=== PATIENT | female | born 1970 | race Caucasian/White ===

== ENCOUNTER 2020-04-07 07:04 | Outpatient (CLI) | payer OTHER, SELFPAY | END 2020-04-07 07:05 | disposition home or self-care (01) | PROVIDERS: PCP Internal Medicine; Visit Provider Internal Medicine Gastroenterology | DX: Z01.818 Encounter for other preprocedural examination (principal); Z11.59 Encounter for screening for other viral diseases | CPT/HCPCS: 87635; C9803; U0003 ==

== ENCOUNTER 2020-04-09 00:18 | Day surgery (SDC) | payer OTHER, SELFPAY ==
[2020-03-28 12:36] VITALS: BMI 22.8
[2020-04-09 08:20] VITALS: BP 133/70; PULSE 44; RESP 16; TEMP 37.1; O2SAT 100; BMI 22.8
--- NOTE | 2020-04-09 08:34 | WPDANESEPPF ---
Anes - Initial Pre Proc Eval Procedure: Operation Date: 04/09/20 09:00 Proposed Procedures p Screening Colonoscopy - Tristan Hector MD Date/Time: 04/09/20 08:34 Surgeon: Tristan Hector MD Pre Op Diagnosis: Neoplasm Screening Patient Data Age: 50 Gender: F Height: 5 ft 8 in Weight: 68.2 kg Last Vital Signs Temp 98.8 F 04/09/20 08:20 Pulse 44 L 04/09/20 08:20 Resp 16 04/09/20 08:20 BP 133/70 04/09/20 08:20 Pulse Ox 100 04/09/20 08:20 Allergies Allergy/AdvReac Type Severity Reaction Status Date / Time No Known Allergies Allergy Mild Verified 04/09/20 08:19 Home Medications Medication Instructions Recorded Confirmed Type No Home Medications 03/28/2008 History Patient hx anesthesia problems: none Family hx anesthesia problems: none PMFSH Past Medical History Medical History (Updated 04/09/20 @ 08:34 by Salvador Merrill MD) Healthy adult Anes - Eval Final PreProcedure Day of Procedure 04/09/20 08:34 Patient weight: normal Heart: regular rate and rhythm Lungs: clear to auscultation Airway: Mallampati scale class II Neurological: alert and oriented Last oral intake: >/= 8 hours ASA classification: I Emergent: no Anesthetic plan: proceed Anesthesia type and monitoring: general GIVS and standard monitoring Informed Consent: The patient's anesthetic plan and its attendant risks and benefits were discussed with the patient/family/POA. Questions were solicited and answers provided to the satisfaction of the patient/family/POA.
--- NOTE | 2020-04-09 08:57 | PM.HPGS ---
History of Present Illness History of Present Illness Consent: Risks, benefits, and alternatives have been discussed and questions answered. Patient agrees to proceed with procedure. Chief complaint: Neoplasm Screening Narrative: Bronwyn Luna is a 50 year old female Referred for screening colonoscopy. [facility] Past Medical History Medical History Healthy adult Meds Home Medications and Allergies Home Medications Medication Instructions Recorded Confirmed Type No Home Medications 03/28/20 03/28/20 History Allergies Allergy/AdvReac Type Severity Reaction Status Date / Time No Known Allergies Allergy Mild Verified 04/09/20 08:19 Vital Signs Vital Signs - 24 hr 04/09/20 08:20 Temperature 37.1 C Pulse Rate 44 L Respiratory Rate 16 Blood Pressure 133/70 Pulse Oximetry 100 Exam Resp: Auscultation: clear to auscultation bilaterally Cardio: Rate: regular rate Rhythm: regular rhythm GI: GI Palp: Yes Soft to palpation and No Tenderness to palpation present (GI) Assessment and Plan Assessment and plan (1) Colon cancer screening: Code(s): Z12.11 - Encounter for screening for malignant neoplasm of colon Status: Acute Assessment and Plan: Colonoscopy with possible biopsy or polypectomy or cautery or injection of substances.
[2020-04-09 08:58] VITALS: BP 138/77; PULSE 62; RESP 14; O2SAT 100
[2020-04-09] MEDS: LACTATED RINGERS 1,000 ML 150 ML IV CONT (09:06)
[2020-04-09 09:08] VITALS: BP 122/80; PULSE 47; RESP 15; O2SAT 100
[2020-04-09 09:23] VITALS: BP 122/76; PULSE 45; RESP 15; O2SAT 100
== END 2020-04-09 09:29 | disposition home or self-care (01) ==
PROVIDERS: PCP Internal Medicine; Visit Provider Internal Medicine Gastroenterology
PROC: 0DJD8ZZ Inspection of Lower Intestinal Tract, Via Natural or Artificial Opening Endoscopic (ICD-10-PCS; CPT 45378; principal; 2020-04-09 09:00)
DX: Z12.11 Encounter for screening for malignant neoplasm of colon (principal)
CPT/HCPCS: 45378; J2704; J7120

== ENCOUNTER 2020-10-26 11:24 | Emergency (ER) | payer OTHER, SELFPAY ==
--- NOTE | ~2020-10-26 | XR_ITS ---
XR finger 4th LT min 2V 10/26/2020 11:44 Indication: Left fourth finger pain Procedure: 4 views left fourth finger Comparison: No prior studies for comparison. Findings: There is a spiral fracture of the left fourth middle phalanx. No definite intra-articular e xtension or significant displacement. Mild soft tissue swelling dorsal to the PIP joint. Impression: 1: Nondisplaced extra-articular spiral fracture left fourth middle phalanx. Reviewed, dictated and finalized at location A. PARTS CUTTER Impression: 1: Nondisplaced extra-articular spiral fracture left fourth middle phalanx.
[2020-10-26 11:28] VITALS: BP 131/82; PULSE 57; RESP 12; TEMP 36.6; O2SAT 100
--- NOTE | 2020-10-26 11:32 | ED.GENADULT ---
HPI - General Adult General Chief complaint: Extremity Injury, Upper Stated complaint: INJURED FINGER Time Seen by Provider: 10/26/20 11:37 Source: patient and RN notes reviewed Mode of arrival: ambulatory Limitations: no limitations History of Present Illness HPI narrative: 50-year-old female presents with complaints of LT 4th (ring) finger bruising, pain, and swelling for 1 day. Bronwyn reports that she was chasing after her dog and fell causing injury to LT 4th (ring) finger. Ice and finger splint with little relief. Denies numbness or tingling. No weakness of finger. Denies fever or chills. Denies immobility. Exacerbation is movement, bending, and palpation of finger. Relieving factor is rest. Dominant hand is RIGHT HAND. Denies break in skin or drainage. Denies hitting head, loss of consciousness, seizure activity, or syncopal episodes. The patient reports she have not been diagnosed with COVID-19. The patient reports she is not waiting for the results of a COVID-19 lab test. The patient reports she do not have chills, weakness, or fatigue. The patient reports she do not have a new or worsening cough or shortness of breath. Denies chest pain. The patient reports she do not have any rhinorrhea, congestion, sore throat, loss of taste, nausea, vomiting, abdominal pain, and diarrhea. Tolerating po intake well. Denies recent traveling. Denies concerns for COVID-19 or exposures been home with limited outdoor exposure except for essential household needs, work, and return home. At this time, patient is not suspected of having COVID-19. Some parts of this dictation were generated by voice recognition software and may contain typographical and/or grammatical inaccuracies. Related Data Allergies Allergy/AdvReac Type Severity Reaction Status Date / Time No Known Allergies Allergy Mild Verified 10/26/20 11:32 Review of Systems Review of Systems: Narrative: CONSTITUTIONAL: Denies fever, chills, sweats. EYES: Denies visual changes, redness, discharge. ENT: Denies rhinorrhea, congestion, sore throat, otalgia. CARDIOVASCULAR: Denies chest pain, palpitations, edema. RESPIRATORY: Denies dyspnea, wheezing, cough. GASTROINTESTINAL: Denies abdominal pain, nausea, vomiting, diarrhea. SKIN: Denies rash or itching. MUSCULOSKELETAL: Denies acute back pain or myalgia. Complains of LT 4th (ring) finger with bruising, swelling, and tenderness. NEUROLOGIC: Denies numbness or focal weakness. PSYCHIATRIC: Denies anxiety or depression. All systems reviewed & are unremarkable except as noted in HPI and below PMFSH Past Medical History Medical History (Updated 10/27/20 @ 00:00 by Olman Dangelo) Healthy adult No significant past medical history Surgical History Surgical History (Updated 10/26/20 @ 12:05 by DAILY Lorenzana) No significant past surgical history Family History Family History (Updated 10/26/20 @ 12:06 by DAILY Lorenzana) Father Hypertension Mother Alive and well Social History Social History (Updated 10/26/20 @ 12:07 by DAILY Lorenzana) Smoking status: Former smoker Tobacco type: cigarettes Second hand tobacco smoke exposure: No Smoking end date: 11/21/99 Alcohol intake: current Substance use: never Living arrangements: with family Occupation/Education: occupation Gender identity (if verbalized by the patient): Female Sexual Orientation (if Verbalized by the Patient): Straight or Heterosexual Comments At time of signature, agree with nurse past medical, surgical, social, and family history. There is no relevant family history pertinent to the presenting complaint. Exam Narrative: Exam Narrative: GENERAL: This is a well-nourished, well-developed patient, in no apparent distress. HEAD: normocephalic, atraumatic. EYES: PERRL. Sclera clear/white. Vision is grossly intact. CARDIOVASCULAR: Regular rate and rhythm without murmurs, gallops, or rubs.
== END 2020-10-26 12:10 | disposition home or self-care (01) ==
PROVIDERS: Emergency Provider Nurse Practitioner Family; PCP Internal Medicine
DX: S62.655A Nondisplaced fracture of middle phalanx of left ring finger, initial encounter for closed fracture (principal); W19.XXXA Unspecified fall, initial encounter; Z87.891 Personal history of nicotine dependence
CPT/HCPCS: 29130; 73140; 99214; G0463

== ENCOUNTER → 2021-04-13 16:49 | Outpatient (CLI) | payer OTHER, SELFPAY ==
--- NOTE | ~2021-04-13 | MM_ITS ---
EXAMINATION: MM screening rajwinder BI w piero HISTORY: Screening mammogram TECHNIQUE: Craniocaudal and mediolateral oblique 3-D tomosynthesis images were obtained and synthetic 2-D images were generated. CAD analysis was submitted and interpreted. COMPARISON: 09/07/2019, 12/20/2017, 11/16/2016 bilateral digital screening mammogram examinations BREAST PARENCHYMAL COMPOSITION: The breasts are extremely dense, which lowers the sensitivity of mamm ography. FINDINGS: There is no evidence of suspicious mass, calcification, or architectural distortion to sugg est malignancy in either breast. There has been no suspicious interval change. IMPRESSION: 1. No mammographic evidence of malignancy. 2. Recommend routine screening mammography in one year. BI-RADS Category 1: Negative Reviewed, dictated and finalized at location A.
== END ==
PROVIDERS: Visit Provider Obstetrics & Gynecology
DX: Z12.31 Encounter for screening mammogram for malignant neoplasm of breast (principal)
CPT/HCPCS: 77063; 77067

== ENCOUNTER 2022-09-10 07:13 | Outpatient (CLI) | payer OTHER, SELFPAY ==
--- NOTE | ~2022-09-10 | MM_ITS ---
EXAMINATION: MM screening rajwinder BI w piero HISTORY: Screening TECHNIQUE: Craniocaudal and mediolateral oblique 3-D tomosynthesis images were obtained and synthetic 2-D images were generated. CAD analysis was submitted and interpreted. COMPARISON: Comparison to multiple prior studies sequentially, with oldest reviewed study dated 11/2012. BREAST PARENCHYMAL COMPOSITION: The breasts are extremely dense, which lowers the sensitivity of mamm ography FINDINGS: There is focal asymmetry inferiorly in the left breast on MLO view. There are also clustere d calcifications adjacent to this. The right breast is stable without evidence for malignancy. IMPRESSION: 1. New left breast asymmetry inferiorly in the left breast with adjacent clustered indeterminate calc ifications. 2. Additional mammographic views and possible breast ultrasound are recommended. BI-RADS Category 0: Incomplete: Needs additional imaging evaluation. Reviewed, dictated and finalized at location A. IMPRESSION: 1. New left breast asymmetry inferiorly in the left breast with adjacent cluste red indeterminate calcifications. 2. Additional mammographic views and possible breast ultrasound are recommended . BI-RADS Category 0: Incomplete: Needs additional imaging evaluation.
== END 2022-09-10 07:14 | disposition home or self-care (01) ==
LOC: ANHIMG 07:15
PROVIDERS: PCP Internal Medicine; Visit Provider Internal Medicine
DX: Z12.31 Encounter for screening mammogram for malignant neoplasm of breast (principal); R92.8 Other abnormal and inconclusive findings on diagnostic imaging of breast
CPT/HCPCS: 77063; 77067

== ENCOUNTER 2022-10-05 12:59 | Outpatient (CLI) | payer OTHER, SELFPAY ==
--- NOTE | ~2022-10-05 | MMUS_ITS ---
EXAMINATION: MM diagnostic rajwinder LT w piero, US breast LT complete HISTORY: Rule out left breast asymmetry TECHNIQUE: Additional 3-D tomosynthesis images of the left breast were performed and synthetic 2-D im ages were generated. CAD analysis was submitted and interpreted. High resolution complete left breast ultrasound was performed. COMPARISON: Comparison to multiple prior studies sequentially, with oldest reviewed study dated 04/10. BREAST PARENCHYMAL COMPOSITION: The breasts are extremely dense, which lowers the sensitivity of mamm ography FINDINGS: MAMMOGRAPHIC FINDINGS: There are no discrete masses, calcifications or architectural distortion in the left breast to sugges t malignancy. ULTRASOUND: Complete left breast US of all 4 quadrants of the breasts and retroareolar region was reviewed. At 1: 00, 2 cm from the nipple, there is a 9 mm cyst. At 6:00, 3 cm from the nipple there is a 3 mm cyst. A t 1:00, 2 cm from the nipple, there is an oval hypoechoic mass with parallel orientation, circumscrib ed margins, posterior acoustic enhancement and no internal vascularity. This mass measures 12 x 6 mm and is likely benign. IMPRESSION: 1. Probable benign left breast mass at 1:00, 2 cm from the nipple measuring 12 mm. 2. Recommend 6 month follow-up Limited left breast ultrasound BI-RADS category 3, probably benign findings. Reviewed, dictated and finalized at location A. OTIONS FIRM ACCOUNTS MANAGER IMPRESSION: 1. Probable benign left breast mass at 1:00, 2 cm from the nipple measuring 12 mm. 2. Recommend 6 month follow-up Limited left breast ultrasound BI-RADS category 3, probably benign findings.
== END 2022-10-05 13:00 | disposition home or self-care (01) ==
PROVIDERS: PCP Internal Medicine; Visit Provider Internal Medicine
DX: R92.8 Other abnormal and inconclusive findings on diagnostic imaging of breast (principal)
CPT/HCPCS: 76641; 77061; 77065; G0279

== ENCOUNTER 2023-03-22 08:03 | Outpatient (CLI) | payer OTHER, SELFPAY ==
--- NOTE | ~2023-03-22 | US_ITS ---
EXAMINATION: US breast LT limited HISTORY: Six-month follow-up for probably benign left breast masses TECHNIQUE: Limited left breast ultrasound was performed. FINDINGS: There is a stable 9 mm cyst at the 1:00 location 2 cm. There is a stable 12 mm x 5 mm oval, circumscribed, parallel, hypoechoic mass with posterior acoustic enhancement and no internal vascula rity at the 2:00 location 2 cm from the nipple. IMPRESSION: Stable, probably benign left breast mass. Follow-up left breast ultrasound in six months is recommend ed. BI-RADS category 3, probably benign findings. Reviewed, dictated and finalized at location A. IMPRESSION: Stable, probably benign left breast mass. Follow-up left breast ultrasound in s ix months is recommended. BI-RADS category 3, probably benign findings.
== END 2023-03-22 08:04 | disposition home or self-care (01) ==
PROVIDERS: PCP Internal Medicine; Visit Provider Internal Medicine
DX: R92.8 Other abnormal and inconclusive findings on diagnostic imaging of breast (principal)
CPT/HCPCS: 76642

== ENCOUNTER → 2023-10-17 13:22 | Outpatient (CLI) | payer OTHER, SELFPAY ==
--- NOTE | ~2023-10-17 | MM_ITS ---
EXAMINATION: MM screening rajwinder BI w piero HISTORY: Screening mammogram TECHNIQUE: Craniocaudal and mediolateral oblique 3-D tomosynthesis images were obtained and synthetic 2-D images were generated. Bilateral rotated lateral CC views. .....CAD analysis was submitted and i nterpreted. COMPARISON: 03/22/2023 limited left breast ultrasound 10/05/2022 diagnostic left mammogram and complete left breast ultrasound 09/10/2022, 03/2021 bilateral screening mammogram examinations BREAST PARENCHYMAL COMPOSITION: The breasts are extremely dense, which lowers the sensitivity of mamm ography. FINDINGS: There is no evidence of suspicious mass, calcification, or architectural distortion to sugg est malignancy in either breast. There has been no suspicious interval change. IMPRESSION: 1. No mammographic evidence of malignancy. 2. Recommend routine screening mammography in one year. BI-RADS Category 1: Negative Reviewed, dictated and finalized at location A. 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
--- NOTE | ~2023-10-17 | US_ITS ---
US breast LT limited DATE: 10/17/2023 14:42 INDICATION: Six-month follow-up of probably benign findings on 03/22/2023 limited left breast ultrasoun d TECHNIQUE: Real-time imaging targeted at left breast 2:00 2 cm from nipple and 1:00 2 cm from nipple COMPARISON: 03/22/2023 limited left breast ultrasound FINDINGS: 2:00 2 cm from nipple: Parallel circumscribed hypoechoic approximately 5 x 12 mm lesion with through transmission and posterior enhancement, stable and benign in appearance compared to 03/22/2023. 1:00 2 cm from nipple: Parallel circumscribed 7.5 x 4 x 10 mm cyst with through transmission posterio r enhancement, benign. IMPRESSION: BI-RADS 2: Benign findings Recommendation: Routine annual mammographic screening, with supplemental ultrasound as necessary give n the extremely dense fibroglandular stroma Reviewed, dictated and finalized at Location A. Reviewed, dictated and finalized at location A. IER ASSISTANT IMPRESSION: BI-RADS 2: Benign findings Recommendation: Routine annual mammographic screening, with supplemental ultras ound as necessary given the extremely dense fibroglandular stroma
== END ==
PROVIDERS: PCP Internal Medicine; Visit Provider Internal Medicine
DX: Z12.31 Encounter for screening mammogram for malignant neoplasm of breast (principal); R92.8 Other abnormal and inconclusive findings on diagnostic imaging of breast
CPT/HCPCS: 76642; 77063; 77067

== ENCOUNTER 2024-10-25 07:16 | Outpatient (CLI) | payer OTHER, SELFPAY ==
--- NOTE | ~2024-10-25 | MM_ITS ---
EXAMINATION: MM screening rajwinder BI w piero HISTORY: Screening TECHNIQUE: Craniocaudal and mediolateral oblique 3-D tomosynthesis images were obtained and synthetic 2-D images were generated. CAD analysis was submitted and interpreted. COMPARISON: Comparison to multiple prior studies sequentially, with oldest reviewed study dated 12/20. BREAST PARENCHYMAL COMPOSITION: Dense: The breasts are extremely dense, which lowers the sensitivity of mammography. FINDINGS: There is no evidence of suspicious mass, calcification, or architectural distortion to sugg est malignancy in either breast. There has been no suspicious interval change. IMPRESSION: 1. No mammographic evidence of malignancy. 2. Recommend routine screening mammography in one year. BI-RADS Category 1: Negative Reviewed, dictated and finalized at location B. UNDERWRITER
== END 2024-10-25 07:17 | disposition home or self-care (01) ==
LOC: CHSIMG 07:18
PROVIDERS: PCP Internal Medicine; Visit Provider Internal Medicine
DX: Z12.31 Encounter for screening mammogram for malignant neoplasm of breast (principal)
CPT/HCPCS: 77063; 77067

== ENCOUNTER → 2024-11-29 14:15 | Outpatient (REF) | payer OTHER, SELFPAY | LOC: ANHLAB 14:15 | PROVIDERS: PCP Internal Medicine; Visit Provider Plastic Surgery | DX: C44.519 Basal cell carcinoma of skin of other part of trunk (principal) | CPT/HCPCS: 88305 ==

== ENCOUNTER 2025-10-28 07:20 | Outpatient (CLI) | payer OTHER, SELFPAY ==
--- NOTE | ~2025-10-28 | MM_ITS ---
EXAMINATION: MM screening rajwinder BI w piero HISTORY: Screening. TECHNIQUE: Craniocaudal and mediolateral oblique 3-D tomosynthesis images were obtained and synthetic 2-D images were generated. CAD analysis was submitted and interpreted. COMPARISON: 2023, 2022, and 2021 BREAST PARENCHYMAL COMPOSITION: Dense: The breasts are extremely dense FINDINGS: No suspicious masses are seen. There are no suspicious calcifications. No unexplained architectural distortion is seen. There are no skin or nipple abnormalities identified. There is no adenopathy seen on the images submitted. IMPRESSION: No mammographic evidence to suggest malignancy is seen. The patient may return to screening mammography as per ACR guidelines. BI-RADS 1 - Negative. Reviewed, dictated and finalized at location B. UTIVE MANAGER
== END 2025-10-28 07:21 | disposition home or self-care (01) ==
LOC: CHSIMG 07:21
PROVIDERS: PCP Internal Medicine; Visit Provider Internal Medicine
DX: Z12.31 Encounter for screening mammogram for malignant neoplasm of breast (principal)
CPT/HCPCS: 77063; 77067